=== PATIENT | female | born 1940 | race Caucasian/White ===

== ENCOUNTER 2022-11-01 13:27 | Emergency (ER) | payer MEDICARE, SELFPAY ==
--- NOTE | 2022-11-01 13:31 | ED.NAVMDI ---
HPI - Nausea/Vomiting/Diarrhea General Chief complaint: Nausea/Vomiting/Diarrhea Stated complaint: diarrhea Time Seen by Provider: 11/01/22 13:50 Source: patient and RN notes reviewed Mode of arrival: ambulatory Limitations: no limitations History of Present Illness HPI Narrative: 82-year-old female presents concern for chronic diarrhea. Reports she started taking metformin may is since then has been having diarrhea. Reports any time she eats anything she has diarrhea. She avoids eating so she will not have diarrhea. She reports she had increased diarrhea frequency over the last week. She denies any vomiting, abdominal pain, nausea. She denies fever, aches, chills, sweats. She reports her son told her to stop taking the metformin, which she did yesterday. She reports she is prediabetic. She reports she took Imodium which made her constipated so she then took milk of magnesia. Reports she takes Metamucil once daily. She denies bloody stools. She reports skin irritation from her diarrhea MD elicited complaint: diarrhea Related Data Home Medications Medication Instructions Recorded Confirmed ezetimibe 10 mg tablet 10 mg DAILY 11/01/22 11/01/22 lisinopril 20 2 tablet DAILY 11/01/22 11/01/22 mg-hydrochlorothiazide 12.5 mg tablet Allergies Allergy/AdvReac Type Severity Reaction Status Date / Time simvastatin Allergy Unknown Rash Verified 11/01/22 13:46 metformin AdvReac Diarrhea Verified 11/01/22 13:46 Review of Systems Review of Systems: CONSTITUTIONAL: Denies malaise, chills, sweats, or fever. ENT: Denies rhinorrhea, congestion, sinus pain, otalgia or sore throat. CARDIOVASCULAR: Denies chest pain, palpitations, or edema. RESPIRATORY: Denies cough or dyspnea. GASTROINTESTINAL: Denies abdominal pain, nausea, vomiting, bloody, or mucous stools. Reports chronic diarrhea GENITOURINARY: Denies dysuria or hematuria. MUSCULOSKELETAL: Denies myalgia. NEUROLOGIC: Denies headache. All systems reviewed & are unremarkable except as noted in HPI and below PMFSH Past Medical History Medical History Dermatitis Diabetes mellitus HLD (hyperlipidemia) HTN (hypertension) Overweight (08/05/16) Family History Family History Mother Family history of suicide, Onset Age: 73 Patient's mother is Father Family history of kidney disease, Onset Age: 76 Family history of heart disease in male family member before age 55, Onset Age: 76 Patient's father is Social History Social History Smoking status: Never smoker Second hand tobacco smoke exposure: No Alcohol intake: never Substance use: never Substance use type: does not use Additional living arrangements comments: Gender identity (if verbalized by the patient): Female Sexual Orientation (if Verbalized by the Patient): Straight or Heterosexual Comments At time of signature, agree with nursing past medical, surgical, social and family history. There is no relevant family history pertinent to the presenting complaint Exam Narrative: GENERAL: Well-appearing, well-nourished, and in no acute distress. HEAD: Normocephalic, atraumatic. EYES: PERRLA, conjunctivae clear, and EOMI. ENT: Nares clear, turbinates pink, no rhinorrhea or epistaxis. Mucous membranes moist. Oropharynx without edema, erythema, or lesions. Tonsils not enlarged and without exudate. NECK: Supple. No lymphadenopathy CHEST: Speaks in full sentences. No respiratory distress. HEART: Regular rate and rhythm. ABDOMEN: Soft, flat, nondistended, nontender. No guarding, rebound tenderness, or rigidity. No pulsatile masses. Bowel sounds present in all four quadrants. No organomegaly. Negative Alvares?s sign. No periumbilical tenderness. No Supra public tenderness or distension. SKIN: Warm,
[2022-11-01 13:34] VITALS: BP 164/72; PULSE 87; RESP 18; TEMP 36.6; O2SAT 99
== END 2022-11-01 14:04 | disposition home or self-care (01) ==
PROVIDERS: Emergency Provider Nurse Practitioner; PCP Emergency Medicine
DX: K52.9 Noninfective gastroenteritis and colitis, unspecified (principal); E11.9 Type 2 diabetes mellitus without complications; E78.5 Hyperlipidemia, unspecified; I10 Essential (primary) hypertension
CPT/HCPCS: 99213; G0463

== ENCOUNTER 2023-09-08 11:15 | Outpatient (CLI) | payer MEDICARE, SELFPAY ==
--- NOTE | 2023-09-08 | ECG_ITS ---
Measurements Intervals [place] Rate: 85 P: 15 MN: 184 QRS: -4 QRSD: 105 T: 62 QT: 348 QTc: 416 Interpretive Statements SINUS RHYTHM POSSIBLE LEFT ATRIAL ENLARGEMENT [-0.1mV P WAVE IN V1/V2] NONSPECIFIC T-WAVE ABNORMALITY ABNORMAL ECG NO PREVIOUS ECG AVAILABLE FOR COMPARISON Electronically Signed On 09-08-2023 12:14:03 CDT by Logan Morelos M.D.
== END 2023-09-08 11:16 | disposition home or self-care (01) ==
LOC: ANHCARD 11:17
PROVIDERS: PCP Emergency Medicine; Visit Provider Emergency Medicine
DX: R07.9 Chest pain, unspecified (principal); R94.31 Abnormal electrocardiogram [ECG] [EKG]
CPT/HCPCS: 93005

== ENCOUNTER 2024-06-19 07:11 | Emergency (ER) | payer MEDICARE, SELFPAY ==
--- NOTE | ~2024-06-19 | CT_ITS ---
EXAMINATION: CT abdomen pelvis wo con DATE: 06/19/2024 08:31 INDICATION: Left flank pain. Low back pain. TECHNIQUE: Computed tomography (CT) of the abdomen and pelvis was performed without intravenous contr ast. Automated exposure control and iterative reconstruction technique were employed. The dose-length product was 1428.56 mGy-cm. COMPARISON: None. FINDINGS: The visualized portions of the lung bases demonstrate mild atelectasis. No pleural effusion . Cardiomegaly is noted. There are coronary artery calcifications. No pericardial effusion. There is a small sliding hiatal hernia. The liver and spleen are normal. The gallbladder is normal in size and contains a gallstone. Gallbladder wall thickening is noted, likely chronic cholecystitis. The pancre as and adrenal glands are normal. There is cortical thinning of the kidneys. There is a 4 mm stone in left kidney. There are small calcified uterine fibroids. There is diverticulosis of the colon withou t evidence of diverticulitis. The appendix is normal. There are no pathologically enlarged lymph node s. There is no free intraperitoneal fluid. Arterial calcifications are noted. There are bridging endp late osteophytes at multiple levels in the spine, consistent with diffuse idiopathic skeletal hyperos tosis (DISH). There is severe lumbar spondylosis. There is a fracture deformity of left ninth rib, li jayme old. 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 Osteitis pubis is noted. IMPRESSION: 1. Small sliding hiatal hernia. 2. Cholelithiasis. Gallbladder wall thickening is likely secondary to chronic cholecystitis. 3. Small nonobstructing left kidney stone. Reviewed, dictated and finalized at location A. IMPRESSION: 1. Small sliding hiatal hernia. 2. Cholelithiasis. Gallbladder wall thickening is likely secondary to chronic c holecystitis. 3. Small nonobstructing left kidney stone.
[2024-06-19 07:19] VITALS: BP 137/69; PULSE 84; RESP 16; TEMP 36.2; O2SAT 97
--- NOTE | 2024-06-19 07:19 | ED.BACK ---
HPI - Back Pain/Injury General Chief Complaint: Back Pain/Injury Stated Complaint: Back pain Time Seen by Provider: 06/19/24 07:13 Source: patient and family (Grandson) Mode of arrival: ambulatory Limitations: no limitations History of Present Illness HPI Narrative: 83-year-old female presents with low back/left-sided flank pain. She says she has a degree of chronic pain in this area but no prior surgeries. She denies any other myalgias. No history of urinary tract infections, pyelonephritis, or kidney stones. She denies any dysuria or hematuria. She does have some urinary urgency/frequency but attributes that to the diuretic that is part of her antihypertensive. She does note that she frequently has to strain with bowel movements for which she tries to eat foods high in fiber as well as taking supplemental Metamucil. She previously been on metformin for her prediabetes/diabetes but quit because of diarrhea. She restarted taking this and again had diarrhea but then had issues with constipation for a while for which she takes a probiotic/pre biotic. She denies any current abdominal pain. No fevers, history of malignancy, night sweats, or weight loss. She describes it as a spasm feeling, denies a tearing sensation. She did have a fall few weeks ago. She took an Aleve prior to arrival this morning but she has been advised by her primary care physician Dr. Hart to limit her use of this medication for unclear reasons. She has never had colonoscopy before. Not on chronic steroids. Has a history of chronic knee pain as well although she states these are not bothering her today. Related Data Home Medications Medication Instructions Recorded Confirmed magnesium oxide 250 mg PO DAILY 12/08/23 03/29/24 Allergies Allergy/AdvReac Type Severity Reaction Status Date / Time simvastatin Allergy Unknown Rash Verified 03/29/24 13:08 metformin AdvReac Intermediate Diarrhea Verified 03/29/24 13:08 [facility] Past Medical History Medical History Dermatitis Diabetes mellitus Hearing aid worn Hip pain HLD (hyperlipidemia) HTN (hypertension) Knee pain Overweight (08/05/16) Family History Family History Mother Family history of suicide, Onset Age: 73 Patient's mother is Father Family history of kidney disease, Onset Age: 76 Family history of heart disease in male family member before age 55, Onset Age: 76 Patient's father is Social History Social History Smoking status: Never smoker Second hand tobacco smoke exposure: No Alcohol intake: never Substance use: never Substance use type: does not use Current Housing: Decline to Answer Concerned About Future Housing: Decline to Answer Difficulty Paying Gas/Electric Bills: Decline to Answer Difficulty Paying for Meds: Decline to Answer Currently Unemployed: Decline to Answer Education: Decline to Answer Difficulty w/ Childcare or Family Care: Decline to Answer Living arrangements: alone Additional living arrangements comments: Occupation/Education: retired Gender identity (if verbalized by the patient): Female Sexual Orientation (if Verbalized by the Patient): Straight or Heterosexual Exam Narrative: GENERAL: Well-appearing, well-nourished, and in no acute distress. Hair in curlers/rollers. HEAD: Normocephalic, atraumatic. EYES: Non injected, non icteric ENT: Nares clear, no rhinorrhea or epistaxis. Hearing aid right ear. NECK: Supple. CHEST: Speaking in full sentences. No respiratory distress. HEART: Regular rate and rhythm. . ABDOMEN: Soft, nondistended. Nontender to palpation throughout. EXTREMITIES/BACK: Patient demonstrates active range of motion with flexion extension of thoracic and lumbar spine. Thoracic and lumbar
[2024-06-19] MEDS: HYDROcodone/acetaminophen (*CRX) 5-325 MG TABLET 1 TAB PO (07:45)
[2024-06-19] MEDS: LIDOCAINE 5% PATCH 1 PATCH TRANSDERM (08:02)
[2024-06-19 08:06] LABS: Add Urine Microscopic? YES; Appearance Urine Clear (Clear); Bacteria Urine None Seen /hpf; Bilirubin Urine Negative (Negative); Blood Urine Negative (Negative); Color Urine Yellow (Yellow); Glucose Urine UA Negative (Negative); Ketones Urine Negative (Negative); Leukocyte Esterase Ur Trace LEU/UL (Negative); Nitrate Urine Negative (Negative); Non Pathogenic Casts 0-2; Protein Urine Negative (Negative); RBC Urine 0-2 /hpf (0-2); Specific Grav Ur 1.012 (1.001-1.035); Squamous Epithelial Cell Urine None Seen /hpf (Few); Urobilinogen Urine 0.2 mg/dL (<2.0); WBC Urine 0-5 /hpf (0-3)
[2024-06-19] MEDS: PANTOPRAZOLE 40 MG TABLET PO (09:04)
== END 2024-06-19 09:10 | disposition home or self-care (01) ==
PROVIDERS: Emergency Provider Student in an Organized Health Care Education/Training Program; PCP Emergency Medicine
DX: M54.50 Low back pain, unspecified (principal); K44.9 Diaphragmatic hernia without obstruction or gangrene; K80.10 Calculus of gallbladder with chronic cholecystitis without obstruction; N20.0 Calculus of kidney; E11.9 Type 2 diabetes mellitus without complications; E78.5 Hyperlipidemia, unspecified; I10 Essential (primary) hypertension
CPT/HCPCS: 74176; 81001; 99284; A9270